=== PATIENT | female | born 2005 ===

== ENCOUNTER 2025-03-27 09:08 | Outpatient (REF) | payer OTHER, SELFPAY ==
--- NOTE | ~2025-03-27 | US_ITS ---
EXAMINATION: US ABDOMEN COMPLETE CLINICAL INFORMATION: Epigastric pain.. COMPARISON: None available. TECHNIQUE: Real-time ultrasound of the abdomen using grayscale technique. FINDINGS: PANCREAS: No peripancreatic fluid collections. No gross main pancreatic ductal dilatation. ABDOMINAL AORTA: The proximal, mid, and distal segments are normal in caliber. INFERIOR VENA CAVA: Visualized portions are normal. LIVER: Liver measures 14 cm per technologist. Increased echotexture. No nodular surface. No solid or cystic lesion. No intrahepatic biliary ductal dilatation. Main portal vein is patent with normal hepatopedal flow direction. GALLBLADDER: Fluid-filled nondistended. No pericholecystic fluid collection or gallbladder wall thickening. COMMON BILE DUCT: 2 mm. RIGHT KIDNEY: 11 cm. Normal echotexture. Renal cortical thickness is normal. No hydronephrosis. No solid or cystic lesion.. LEFT KIDNEY: 11 cm. Normal echotexture. Renal cortical thickness is normal. No hydronephrosis. No solid or cystic lesion. SPLEEN: 9 cm. No solid or cystic lesion.. FREE FLUID: None. US/US abdomen complete IMPRESSION: Hepatic steatosis. No cholelithiasis or choledocholithiasis. No hydronephrosis or gross nephrolithiasis. No ascites. Electronically signed by: Travis Peña MD 03/27/2025 10:59 AM EST
== END 2025-03-27 09:09 | disposition home or self-care (01) ==
LOC: HO.UMASIMG 09:08
PROVIDERS: Visit Provider Nurse Practitioner
DX: R10.13 Epigastric pain (principal)
CPT/HCPCS: 76700

== ENCOUNTER → 2025-03-27 09:19 | Outpatient (BNV) | payer OTHER, SELFPAY | PROVIDERS: Visit Provider Radiology Diagnostic Radiology | DX: K76.0 Fatty (change of) liver, not elsewhere classified (principal) | CPT/HCPCS: 76700 ==